=== PATIENT | female | born 1985 | race African-American/Black ===

== ENCOUNTER 2024-04-11 00:04 | Emergency (ER) | payer MEDICAID, OTHER ==
[~2024-04-11] VITALS: Ht 157.5 cm; Wt 100.0 kg
[2024-04-11] MEDS: IPRATROPIUM BROM 0.5 MG/2.5ML INH SOL NEB ONE (00:59)
[2024-04-11] MEDS: ALBUTEROL SULF 2.5 MG/0.5ML(0.5%) NEB SOLN NEB ONE (00:59)
[2024-04-11] MEDS ORDERED: AMOX875T4 PO (04:20)
[2024-04-11] MEDS ORDERED: PRED20TA2 PO (04:20)
[2024-04-11] MEDS ORDERED: ALBUAER3 IN (04:20)
[2024-04-11] MEDS ORDERED: CLOT1CRE79 EX (04:21)
[2024-04-11] MEDS: methylPREDNISolone SOD SUCC 125 MG/2 ML VL IM ONE (04:25)
[2024-04-11 05:36] VITALS: BP 132/90; PULSE 61; RESP 17; TEMP 98.3; O2SAT 97
== END 2024-04-11 04:34 | disposition home or self-care (01) ==
LOC: ER 00:04
DX: J45.909 Unspecified asthma, uncomplicated (principal); B35.2 Tinea manuum
CPT/HCPCS: 94640; 96372; 99283; J2919